=== PATIENT | female | born 1955 | race Caucasian/White ===

== ENCOUNTER 2017-04-06 07:55 | Emergency (ER) | payer OTHER ==
[~2017-04-06] VITALS: Ht 160 cm; Wt 77.7 kg
[~2017-04-06 07:55] MED LIST: ASPIRIN E.C. 8181 MG PO; ESTRACE0.5 MG PO; ESTRADIOL1 MG PO; FEOSOL65 MG PO; IMITREX25 MG PO; LEVOTHYROXIN0.112 MG PO; METFORMIN1000 MG PO; SIMCOR 1000 MG-1 TER PO; SYNTHROID0.1 MG/TAB PO; SYNTHROID0.112 MG/T PO; VITAMIN D5000 IU PO
[2017-04-06 07:57] VITALS: TEMP 97.8
[2017-04-06 09:39] VITALS: BP 128/76; PULSE 70
== END 2017-04-06 09:40 | disposition home or self-care (01) ==
LOC: COL.ER 07:55
DX: R51 Headache (principal); E11.9 Type 2 diabetes mellitus without complications; E03.9 Hypothyroidism, unspecified; E78.5 Hyperlipidemia, unspecified; F17.210 Nicotine dependence, cigarettes, uncomplicated; Z90.710 Acquired absence of both cervix and uterus; Z98.890 Other specified postprocedural states; Z90.49 Acquired absence of other specified parts of digestive tract; Z79.84 Long term (current) use of oral hypoglycemic drugs
CPT/HCPCS: J1200; J1885; J2765; J7030

== ENCOUNTER → 2018-10-29 | Outpatient (CLI) | payer OTHER | LOC: MC.RAD 10:06 | DX: Z12.31 Encounter for screening mammogram for malignant neoplasm of breast (principal) ==

== ENCOUNTER → 2019-11-28 | Outpatient (CLI) | payer OTHER | LOC: MC.RAD 09:49 | DX: Z12.31 Encounter for screening mammogram for malignant neoplasm of breast (principal) ==

== ENCOUNTER 2021-08-10 09:59 | Day surgery (SDC) | payer OTHER ==
[~2021-08-10] VITALS: Ht 160 cm; Wt 77.0 kg
[2021-08-10] VITALS (10 sets, daily range): BP systolic 105–156; BP diastolic 55–80; PULSE 62–84; TEMP 98.9
[~2021-08-10 09:59] MED LIST changes: +GLUCOPHAGE1000 MG PO; -METFORMIN1000 MG PO; +SYNTHROID 0.0.025 MG PO; -SYNTHROID0.112 MG/T PO
[2021-08-10] MEDS ORDERED: ZESTRIL 10MG10 MG PO (10:45)
[2021-08-10] MEDS ORDERED: CRESTOR20 MG PO (10:46)
[2021-08-10] MEDS ORDERED: ACTOS30 MG PO (10:46)
[2021-08-10] MEDS ORDERED: EFFEXOR XR75 MG/CAP PO (10:46)
[2021-08-10] MEDS ORDERED: VITAMIN D31000 I1 PO (10:47)
[2021-08-10] MEDS ORDERED: CLARITIN 1010 MG/TAB PO (10:47)
[2021-08-10] MEDS ORDERED: B COMPLEX #11 TA1 PO (10:48)
[2021-08-10] MEDS ORDERED: IMITREX100 MG PO (10:48)
[2021-08-10 10:49] LABS: HEMATOCRIT 41.4 % (37.0-47.0); HEMOGLOBIN 13.1 g/dl (12.5-16.0); MEAN CELL VOLUME 82 fl (80.0-100.0); MEAN CORPUSCULAR HEMOGLOBIN 26 pg (27.0-31.0); MEAN CORPUSCULAR HGB CONC 32 g/dl (33.0-37.0); MEAN PLATELET VOLUME 9.4 fl (7.4-10.4); PLATELET COUNT 282 K/mm3 (130-400); RED BLOOD COUNT 5.04 M/mm3 (4.10-5.30); REDCELL DISTRIBUTION WIDTH-CV 20.9 % (11.5-14.5)
--- NOTE | 2021-08-10 10:53 | NUR ---
SEE MERGE FOR MEDICATION ADMINISTRATION TIMES/DOSAGES AND INTRA/POST SEDATION ASSESSMENTS.
[2021-08-10 11:03] LABS: CALCIUM 10.4 mg/dL (8.4-10.2); CREATININE, serum 0.83 mg/dL (0.57-1.11); POTASSIUM 4.2 mmol/L (3.5-4.5); PROTHROMBIN TIME 11.3 SECONDS (9.7-12.8)
[2021-08-10 11:05] LABS: PARTIAL THROMBOPLASTIN TIME 29.8 SECONDS (26.0-37.0)
[2021-08-10] MEDS ORDERED: ASPIRIN E.C. 8181 MG PO (12:33)
--- NOTE | 2021-08-10 14:30 | NUR ---
Air was removed from TR band in 2ml increments with no bleeding or complication. Rt radial puncture site dressed with folded 2x2 and bandaid. Pt is steady on feet in room. INT DC'd with catheter intact. DC instructions reviewed with pt and , both expressed understanding. Pt assisted out to 's car by wheelchair with belongings.
== END 2021-08-10 14:40 | disposition home or self-care (01) ==
LOC: COL.CAR 09:59
PROVIDERS: Internal Medicine Cardiovascular Disease
DX: I20.9 Angina pectoris, unspecified (principal); I10 Essential (primary) hypertension; E78.5 Hyperlipidemia, unspecified; R06.02 Shortness of breath; R94.39 Abnormal result of other cardiovascular function study
CPT/HCPCS: C1769; J1644; J2250; J3010; Q9967

== ENCOUNTER → 2023-09-28 | Outpatient (CLI) | payer OTHER ==
[~2023-09-28] MED LIST changes: +ACTOS30 MG PO; +B COMPLEX #11 TA1 PO; +CLARITIN 1010 MG/TAB PO; +CRESTOR20 MG PO; +EFFEXOR XR75 MG/CAP PO; +IMITREX100 MG PO; +VITAMIN D31000 I1 PO; +ZESTRIL 10MG10 MG PO
== END ==
LOC: MC.RAD 08:55
DX: Z12.31 Encounter for screening mammogram for malignant neoplasm of breast (principal)